=== PATIENT | female | born 1975 | race Caucasian/White ===

== ENCOUNTER 2019-06-11 15:59 | Inpatient (IN) | payer MEDICAID ==
[~2019-06-11] VITALS: Ht 157.5 cm; Wt 94.3 kg
[2019-06-11] MEDS ORDERED: NITROGLYCERIN OINT 1GM/INCH UDPKT TD ONE (20:45)
[2019-06-11] MEDS ORDERED: ASPIRIN 81MG TABLET PO ONE (20:45)
[2019-06-11 20:53] LABS: BASOPHILS % 0.8 % (0.0-2.0); EOSINOPHILS % 3.5 % (0.0-5.0); HEMATOCRIT. 39.2 % (36.0-48.0); HEMOGLOBIN. 13.2 g/dL (12.0-16.0); LYMPHOCYTES % 18.4 % (20.0-50.0); MEAN CORPUSCULAR HEMOGLOBIN 32.3 pg (28.0-32.0); MEAN PLATELET VOLUME 8.7 fl (7.4-10.4); MONOCYTES % 4.5 % (2.0-8.0); NEUTROPHILS % 72.8 % (40.0-76.0); PLATELET 227 x1000/uL (130-400); RED BLOOD CELL COUNT 4.08 mill/uL (4.2-5.4); RED CELL DISTRIBUTION WIDTH 13.1 % (11.6-14.6)
[2019-06-11 20:59] LABS: CHLORIDE 106 mEq/L (98-107)
[2019-06-11] MEDS ORDERED: ACETAMINOPHEN 325MG TABLET PO ONE (22:15)
[2019-06-12 01:05] VITALS: BP 106/60
[2019-06-12] MEDS ORDERED: ALBU18HF2 IH (03:23)
[2019-06-12] MEDS ORDERED: IPRATROPIUM/ALBUTEROL 0.5-3(2.5)MG/3ML NEB HHN PRN (03:45)
[2019-06-12] MEDS ORDERED: DEXTROSE 50% WATER 50ML SYRINGE IV PRN (03:45)
[2019-06-12] MEDS ORDERED: HYDROCODONE/ACETAMINOPHEN 5/325MG TABLET PO PRN (03:45)
[2019-06-12] MEDS ORDERED: ACETAMINOPHEN 325MG TABLET PO PRN (03:45)
[2019-06-12 06:56] LABS: CHLORIDE 107 mEq/L (98-107)
[2019-06-12 07:12] LABS: CREATINE KINASE 190 IU/L (26-192)
[2019-06-12 07:14] LABS: CREATINE KINASE MB FRACTION < 1.0 ng/mL (0.5-3.6)
[2019-06-12 07:20] LABS: BASOPHILS % 0.4 % (0.0-2.0); EOSINOPHILS % 3.1 % (0.0-5.0); HEMATOCRIT. 35.8 % (36.0-48.0); HEMOGLOBIN. 12.1 g/dL (12.0-16.0); MEAN CORPUSCULAR HEMOGLOBIN 32.4 pg (28.0-32.0); MEAN CORPUSCULAR VOLUME 96.1 fL (81.0-99.0); MEAN PLATELET VOLUME 9.3 fl (7.4-10.4); MONOCYTES % 5.7 % (2.0-8.0); NEUTROPHILS % 72.8 % (40.0-76.0); PLATELET 231 x1000/uL (130-400); RED BLOOD CELL COUNT 3.73 mill/uL (4.2-5.4)
[2019-06-12] MEDS: BLOOD SUGAR DIAGNOSTIC STRIP TEST SCH ×4 (07:44→21:00)
[2019-06-12 08:00] VITALS: BP 92/58
[2019-06-12] MEDS: INSULIN LISPRO 100 UNITS/ML SUBCUT SCH ×4 (08:10→21:00)
[2019-06-12] MEDS: ENOXAPARIN 30MG/0.3ML SYR SUBCUT SCH ×2 (09:04→22:07)
[2019-06-12] MEDS: IBUPROFEN 600MG TABLET PO PRN ×2 (10:33→22:08)
[2019-06-12 12:00] VITALS: BP 90/54
[2019-06-12 14:21] LABS: *AMPHETAMINES SCREEN URINE NEGATIVE (NEGATIVE); *BARBITURATES SCREEN URINE NEGATIVE (NEGATIVE); *COCAINE SCREEN URINE NEGATIVE (NEGATIVE)
[2019-06-12 14:22] LABS: *BENZODIAZEPINES SCREEN URINE PRESUMTIVE POSITIVE (NEGATIVE); CANNABINOID URINE SCREEN NEGATIVE (NEGATIVE); METHADONE URINE SCREEN NEGATIVE (NEGATIVE); OPIATES URINE SCREEN PRESUMTIVE POSITIVE (NEGATIVE); PHENCYCLIDINE URINE SCREEN NEGATIVE (NEGATIVE)
[2019-06-12 14:28] LABS: CREATINE KINASE 338 IU/L (26-192)
[2019-06-12 14:29] LABS: CREATINE KINASE MB FRACTION < 1.0 ng/mL (0.5-3.6)
[2019-06-12 16:00] VITALS: BP 98/45
[2019-06-12 20:00] VITALS: BP 109/75
[2019-06-12 22:15] LABS: CREATINE KINASE 437 IU/L (26-192)
[2019-06-12 22:16] LABS: CREATINE KINASE MB FRACTION < 1.0 ng/mL (0.5-3.6)
[2019-06-13] VITALS: BP 120/74
[2019-06-13] MEDS: BLOOD SUGAR DIAGNOSTIC STRIP TEST SCH ×2 (06:34→12:00)
[2019-06-13 07:01] VITALS: BP 105/55
[2019-06-13] MEDS: INSULIN LISPRO 100 UNITS/ML SUBCUT SCH ×2 (07:53→12:13)
[2019-06-13 07:55] VITALS: BP 125/44
[2019-06-13] MEDS: ENOXAPARIN 30MG/0.3ML SYR SUBCUT SCH (08:13)
[2019-06-13] MEDS: IBUPROFEN 600MG TABLET PO PRN (11:10)
[2019-06-13 11:23] VITALS: BP 122/74
[2019-06-13 15:35] VITALS: BP 117/66
[2019-06-13 15:58] VITALS: BP 117/66
== END 2019-06-13 17:31 | disposition home or self-care (01) | DRG 203 ==
LOC: ER 15:59 → EDBEDREQTM 22:17 → EDBEDREQ 22:17 → ENRESERV 23:14 → 7WST 06-12 00:23
PROVIDERS: ADMIT Internal Medicine; ATTEND Internal Medicine
DX: M94.0 Chondrocostal junction syndrome [Tietze] (principal); E11.65 Type 2 diabetes mellitus with hyperglycemia; E66.01 Morbid (severe) obesity due to excess calories; D72.829 Elevated white blood cell count, unspecified; G43.909 Migraine, unspecified, not intractable, without status migrainosus; J45.909 Unspecified asthma, uncomplicated; Z82.49 Family history of ischemic heart disease and other diseases of the circulatory system; Z90.49 Acquired absence of other specified parts of digestive tract; Z79.84 Long term (current) use of oral hypoglycemic drugs; Z68.38 Body mass index [BMI] 38.0-38.9, adult
CPT/HCPCS: 36415; 71045; 80048; 80061; 80305; 82550; 82553; 82962; 83036; 83735; 84484; 85379; 93005; 93306; 93970; 99285; J1650

== ENCOUNTER 2023-08-20 15:35 | Emergency (ER) | payer BC, MEDICAID ==
[~2023-08-20] VITALS: Ht 157.5 cm; Wt 83.9 kg
[~2023-08-20 15:35] MED LIST: ALBU18HF2 IH; CYCL10TA21 MT
[2023-08-20 15:53] VITALS: BP 149/80; PULSE 80; RESP 16; TEMP 98.6; O2SAT 98
[2023-08-20] MEDS ORDERED: IBUP-2030 MT (16:36)
[2023-08-20] MEDS ORDERED: CYCL5TAB MT (16:36)
== END 2023-08-20 16:58 | disposition home or self-care (01) ==
LOC: ER 15:35
DX: M54.50 Low back pain, unspecified (principal); J45.909 Unspecified asthma, uncomplicated; Z90.49 Acquired absence of other specified parts of digestive tract
CPT/HCPCS: 99281; 99283